=== PATIENT | male | born 1980 | race Caucasian/White ===

== ENCOUNTER 2016-03-27 10:49 | Inpatient (IN) | payer MEDICAID, OTHER ==
--- NOTE | 2016-03-27 12:58 | ED ---
General Adult HPI - General Chief complaint: Psychiatric Symptoms Stated complaint: mental health Time Seen by Provider: 03/27/16 11:10 Source: patient, RN notes reviewed Mode of arrival: ambulatory Limitations: no limitations - History of Present Illness Initial comments: Patient is a 35-year-old male who presents emergency room today with a chief complaint of suicidal and homicidal ideation. Patient does admit that he does have guns in the house. States she's had thoughts of using them. Will not specifically tell us who he has thoughts of hurting. Patient does admit that the symptoms seem to be increasing. He states had thoughts in the past. He states never had any attempts of hurting himself or others. Patient does admit that there is a therapist, so that he does see. Patient denies any other complaints or symptoms. Patient denies any recent fever, chills, shortness of breath, chest pain, back pain, abdominal pain, nausea or vomiting, numbness or tingling, dysuria or hematuria, constipation or diarrhea, headaches or visual changes, or any other complaints. - Related Data Home Medications Medication Instructions Recorded Confirmed amLODIPine [Norvasc] 10 mg PO DAILY 08/25/14 03/27/16 Escitalopram [Lexapro] 10 mg PO DAILY 12/17/15 03/27/16 LORazepam [Ativan] 1 mg PO BID PRN 12/17/15 03/27/16 Testosterone Cypionate 200 mg IM Q14D 12/17/15 03/27/16 [Depo-Testosterone] cloNIDine HCL [Catapres] 0.1 mg PO BID 12/17/15 03/27/16 oxyCODONE HCL [OxyCONTIN] 20 mg PO DAILY PRN 12/17/15 03/27/16 oxyCODONE-APAP 10-325MG [Percocet 1 tab PO QID PRN 12/17/15 03/27/16 10-325 mg] Methylphenidate HCl [Ritalin] 20 mg PO BID PRN 03/27/16 03/27/16 Allergies Allergy/AdvReac Type Severity Reaction Status Date / Time buprenorphine Allergy Unknown Verified 03/27/16 11:10 codeine Allergy Itching Verified 03/27/16 11:10 ibuprofen [From Motrin] Allergy Unknown Verified 03/27/16 11:10 ketorolac tromethamine Allergy Unknown Verified 03/27/16 11:10 [From Toradol] tramadol HCl [From Ultram] Allergy Unknown Verified 03/27/16 11:10 Whkrtte-Gfa-Gno Reductase AdvReac Severe kidney Verified 03/27/16 11:10 Inhibitor failure Review of Systems ROS Statement: Those systems with pertinent positive or pertinent negative responses have been documented in the HPI. ROS Other: All systems not noted in ROS Statement are negative. Past Medical History Past Medical History: Hypertension Additional Past Medical History / Comment(s): brain mass, back pain History of Any Multi-Drug Resistant Organisms: None Reported Past Surgical History: No Surgical Hx Reported Past Psychological History: No Psychological Hx Reported, Anxiety, Depression Smoking Status: Current every day smoker Past Alcohol Use History: None Reported Past Drug Use History: Marijuana General Exam - General Exam Comments Initial Comments: General: The patient is awake and alert, in no distress, and does not appear acutely ill. Eye: Pupils are equal, round and reactive to light, extra-ocular movements are intact. No nystagmus. There is normal conjunctiva bilaterally. No signs of icterus. Ears, nose, mouth and throat: There are moist mucous membranes and no oral lesions. Neck: The neck is supple, there is no tenderness or JVD. Cardiovascular: There is a regular rate and rhythm. No murmur, rub or gallop is appreciated. Respiratory: Lungs are clear to auscultation, respirations are non-labored, breath sounds are equal. No wheezes, stridor, rales, or rhonchi. Musculoskeletal: Normal ROM, no tenderness. Strength 5/5. Sensation intact. Pulses equal bilaterally 2+. Neurological: A&O x 3. CN II-XII intact, There are no obvious motor or sensory deficits. Coordination appears grossly intact. Speech is normal. Skin: Skin is warm and dry and no rashes or lesions are noted. Psychiatric: Cooperative. Limitations: no limitations Course Vital Signs 03/27/16 10:54 Temperature 97.0 F L Pulse Rate 83 Respiratory 18 Rate Blood Pressure 124/73 O2 Sat by Pulse 99 Oximetry Medical Decision Making - Medical Decision Making Patient has been seen here in the emergency room by [facility]. They do recommend admission. - Lab Data Lab Results 03/27/16 Range/Units 11:10 Urine Opiates Screen Not Detected (NotDetected) Ur Oxycodone Screen Not Detected (NotDetected) Urine Methadone Screen Not Detected (NotDetected) Ur Propoxyphene Screen Not Detected (NotDetected) Ur Barbiturates Screen Not Detected (NotDetected) U Tricyclic Antidepress Not Detected (NotDetected) Ur Phencyclidine Scrn Not Detected (NotDetected) Ur Amphetamines Screen Not Detected (NotDetected) U Methamphetamines Scrn Not Detected (NotDetected) U Benzodiazepines Scrn Detected H (NotDetected) Urine Cocaine Screen Detected H (NotDetected) U Marijuana (THC) Screen Detected H (NotDetected) Disposition Clinical Impression: Suicidal ideation Disposition: TRANSFER TO PSYCH HOSP/UNIT Time of Disposition: 13:20
[2016-03-27 16:10] VITALS: BMI 31.2
[2016-03-27] MEDS ORDERED: ACETAMINOPHEN TAB 325 MG TAB PO PRN (16:56)
[2016-03-27] MEDS ORDERED: ZIPRASIDONE 20 MG VIAL IM PRN (16:56)
[2016-03-27] MEDS ORDERED: MAG HYDROX/AL HYDROX/SIMETH 30 ML CUP PO PRN (16:56)
[2016-03-27] MEDS ORDERED: LORazepam 2 MG/ML SYRINGE IM PRN (16:59)
[2016-03-27] MEDS ORDERED: INFLUENZA VACCINE (3YR+) 60 MCG/0.5 ML SYRINGE IM ONE (17:03)
[2016-03-27] MEDS: HYDROcodone/APAP 5-325MG 1 EACH TAB PO PRN (20:51)
[2016-03-27] MEDS: cloNIDine HCL 0.1 MG TAB PO SCH (20:51)
[2016-03-27] MEDS: LORazepam 1 MG TAB PO PRN (20:51)
[2016-03-28] MEDS: amLODIPine 10 MG TAB PO SCH (08:04)
[2016-03-28] MEDS: cloNIDine HCL 0.1 MG TAB PO SCH ×2 (08:04→20:29)
[2016-03-28] MEDS: NICOTINE 21MG/24HR PATCH TRANSDERM SCH (08:04)
[2016-03-28] MEDS: HYDROcodone/APAP 5-325MG 1 EACH TAB PO PRN ×2 (08:05→16:23)
[2016-03-28] MEDS: LORazepam 1 MG TAB PO PRN (08:05)
[2016-03-28] MEDS ORDERED: NICOTINE 14MG/24HR PATCH TRANSDERM SCH (09:00)
[2016-03-28] MEDS ORDERED: VENLAFAXINE HCL ER 75 MG CAP PO STA (09:45)
[2016-03-28 09:48] LABS: Basophils % (A) 0 %; CH 31.3; CHCM 33.2; Eosinophils # (A) 0.3 k/uL (0-0.7); Eosinophils % (A) 3 %; HCT 53.1 % (39.0-53.0); HDW 2.24; HGB 17.6 gm/dL (13.0-17.5); Luc # (Auto) 0.12; Luc % (Auto) 1; Lymphocytes # (A) 2.1 k/uL (1.0-4.8); Lymphocytes % (A) 24 %; MCH 31.4 pg (25.0-35.0); MCHC 33.2 g/dL (31.0-37.0); MCV 94.6 fL (80.0-100.0); Mean Platelet Volume 6.8; Monocytes # (A) 0.5 k/uL (0-1.0); Monocytes % (A) 6 %; Neutrophils # (A) 5.7 k/uL (1.3-7.7); Neutrophils % (A) 65 %; RBC 5.61 m/uL (4.30-5.90); RDW 12.9 % (11.5-15.5); WBC 8.8 k/uL (3.8-10.6); WBC (Perox) 8.17
[2016-03-28 10:10] LABS: ALT 72 U/L (21-72); AST 35 U/L (17-59); Alkaline Phosphatase 57 U/L (38-126); Anion Gap 12 mmol/L; Blood Urea Nitrogen 13 mg/dL (9-20); Calcium 9.5 mg/dL (8.4-10.2); Carbon Dioxide 24 mmol/L (22-30); Chloride 106 mmol/L (98-107); Glucose 91 mg/dL (74-99); Non-African American GFR(MDRD) >60 (>60 ml/min/1.73 sqM); Potassium 4.8 mmol/L (3.5-5.1); Sodium 142 mmol/L (137-145); Total Bilirubin 0.8 mg/dL (0.2-1.3); Total Protein 6.9 g/dL (6.3-8.2)
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
[2016-03-28] MEDS: ALPRAZolam 0.5 MG TAB PO PRN ×2 (12:03→18:18)
[2016-03-28] MEDS: traZODone HCL 50 MG TAB PO SCH (20:29)
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
[2016-03-29] MEDS: HYDROcodone/APAP 5-325MG 1 EACH TAB PO PRN ×2 (08:18→15:49)
[2016-03-29] MEDS: ALPRAZolam 0.5 MG TAB PO PRN (08:19)
[2016-03-29] MEDS: VENLAFAXINE HCL ER 75 MG CAP PO SCH (08:19)
[2016-03-29] MEDS: amLODIPine 10 MG TAB PO SCH (08:19)
[2016-03-29] MEDS: cloNIDine HCL 0.1 MG TAB PO SCH ×2 (08:19→21:08)
[2016-03-29] MEDS: NICOTINE 21MG/24HR PATCH TRANSDERM SCH (08:19)
--- NOTE | 2016-03-29 14:53 | P.PN ---
Subjective Psychiatric progress notes. Patient indicates that he was able to sleep quite well and has been participating in treatment activities. In addition he was journaling regarding his thoughts and plans. Patient did not experience any adverse effects to his current medication though he was somewhat apprehensive based on his past experience. However indicates that he is having significant anxiety which is not responding to the current dose of Xanax and requesting increased dosage. As noted before patient plans to go to a three-quarter house once he leaves here and return to work as soon as possible. Not having any hostile attitude towards his ex-girlfriend at present. Patient is anxious to be on a mood stabilizer but not Depakote. Mental status. Well-built gentleman dressed in his own clothes coming readily for the evaluation and without any psychomotor disturbance. Attention and concentration aroused and sustained. Speech and thought process did not reveal any abnormal traits. Patient denied any significant depression or wishes at present though acknowledged having increasing anxiety. Appropriate affect. Euthymic mood except to the feelings of anxiousness. Slept well. Seemed to have adequate degree of insight and judgment. To continue current treatment plans and the changes are DC Xanax and change to 1 mg twice a day. Also started on Trileptal 300 mg twice a day as a mood stabilizer. Objective - Vital Signs Vital signs: Vital Signs Temp 97.5 F L 03/29/16 06:53 Pulse 83 03/29/16 06:53 Resp 16 03/29/16 06:53 BP 170/93 03/29/16 06:53 Pulse Ox 96 03/27/16 16:15 - Labs CBC & Chem 7: 03/28/16 08:39 03/28/16 08:39
[2016-03-29] MEDS: traZODone HCL 50 MG TAB PO SCH (21:08)
[2016-03-29] MEDS: ALPRAZolam 0.5 MG TAB PO SCH (21:08)
[2016-03-29] MEDS: OXcarbazepine 300 MG TAB PO SCH (21:08)
[2016-03-30] MEDS: amLODIPine 10 MG TAB PO SCH (08:45)
[2016-03-30] MEDS: ALPRAZolam 0.5 MG TAB PO SCH ×2 (08:48→20:47)
[2016-03-30] MEDS: NICOTINE 21MG/24HR PATCH TRANSDERM SCH (08:48)
[2016-03-30] MEDS: cloNIDine HCL 0.1 MG TAB PO SCH ×2 (08:48→20:47)
[2016-03-30] MEDS: HYDROcodone/APAP 5-325MG 1 EACH TAB PO PRN ×2 (08:49→15:59)
[2016-03-30] MEDS: VENLAFAXINE HCL ER 75 MG CAP PO SCH (08:49)
[2016-03-30] MEDS: OXcarbazepine 300 MG TAB PO SCH ×2 (08:49→20:47)
--- NOTE | 2016-03-30 15:22 | P.PN ---
Subjective Psychiatric progress notes. Patient was admitted the other day with history of significant depression and substance abuse reports feeling better and responding to the medication without any adverse effects. On the other hand he indicates that as an outpatient basis he was also on Ritalin and requesting of the" prescribed this. Patient is scheduled to have family session with his mother tomorrow and is anticipating discharge so that he can return to work on Thursday. Patient is also planning to be staying at a three-quarter house starting on the fifth of this month and denies having any thoughts of harm to self or others. Patient indicates that he has overcome the thoughts he had at the time of admission. Mental status. Well-built gentleman dressed in his own clothes and without any psychomotor disturbance. Attention and concentration aroused and sustained. Patient speaks spontaneously and his speech and thought processes are without any abnormal traits. Patient is euthymic with appropriate affect. Denies any depressive or anxiety feelings and has been sleeping well. No evidence of any delusions or hallucinations and patient has appropriate insight and judgment at this time. Continue current treatment plans. Objective - Vital Signs Vital signs: Vital Signs Temp 97.6 F 03/30/16 06:48 Pulse 82 03/30/16 08:45 Resp 20 03/30/16 08:45 BP 121/60 03/30/16 06:48 Pulse Ox 97 03/30/16 08:45 Intake & Output 03/29/16 03/30/16 03/30/16 18:59 06:59 18:59 Weight 112.7 kg - Labs CBC & Chem 7: 03/28/16 08:39 03/28/16 08:39
[2016-03-30] MEDS: traZODone HCL 50 MG TAB PO SCH (20:48)
[2016-03-31 07:14] VITALS: BP 135/77; PULSE 70; RESP 16; TEMP 97.8
[2016-03-31] MEDS: OXcarbazepine 300 MG TAB PO SCH (08:16)
[2016-03-31] MEDS: amLODIPine 10 MG TAB PO SCH (08:16)
[2016-03-31] MEDS: cloNIDine HCL 0.1 MG TAB PO SCH (08:16)
[2016-03-31] MEDS: ALPRAZolam 0.5 MG TAB PO SCH (08:16)
[2016-03-31] MEDS: VENLAFAXINE HCL ER 75 MG CAP PO SCH (08:16)
[2016-03-31] MEDS: HYDROcodone/APAP 5-325MG 1 EACH TAB PO PRN (08:18)
[2016-03-31] MEDS ORDERED: TESTOSTERONE CYPIONATE 200 MG/ML 1ML VIAL IM SCH (09:00)
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
== END 2016-03-31 09:05 | disposition home or self-care (01) | DRG 885 ==
LOC: EC 10:49 → 3MHU 15:42
PROVIDERS: ADMIT Psychiatry & Neurology Psychiatry; ATTEND Psychiatry & Neurology Psychiatry
DX: F31.81 Bipolar II disorder (principal); R45.851 Suicidal ideations; R45.850 Homicidal ideations; I10 Essential (primary) hypertension; F11.10 Opioid abuse, uncomplicated; E29.1 Testicular hypofunction; F12.10 Cannabis abuse, uncomplicated; F14.10 Cocaine abuse, uncomplicated; F17.200 Nicotine dependence, unspecified, uncomplicated; F41.9 Anxiety disorder, unspecified; B19.20 Unspecified viral hepatitis C without hepatic coma; G89.29 Other chronic pain; F51.5 Nightmare disorder; G47.9 Sleep disorder, unspecified; F10.10 Alcohol abuse, uncomplicated; Z79.899 Other long term (current) drug therapy; Z88.5 Allergy status to narcotic agent; Z88.8 Allergy status to other drugs, medicaments and biological substances
CPT/HCPCS: 80053; 80300; 82075; 84443; 85025; 93005; 99285

== ENCOUNTER 2016-04-13 | Emergency (ER) | payer OTHER ==
--- NOTE | 2016-04-13 16:13 | ED ---
General Adult HPI - General Chief complaint: Recheck/Abnormal Lab/Rx Stated complaint: Rx refill Time Seen by Provider: 04/13/16 16:11 Source: patient, RN notes reviewed, old records reviewed Mode of arrival: ambulatory Limitations: no limitations - History of Present Illness Initial comments: This is a 36-year-old male here for evaluation of medication refill. Patient has no acute complaints, history of psychiatric disease. Sensation states is coming in for an Adderall prescription, - Related Data Home Medications Medication Instructions Recorded Confirmed oxyCODONE-APAP 10-325MG [Percocet 1 tab PO QID PRN 12/17/15 04/13/16 10-325 mg] Methylphenidate HCl [Ritalin] 20 mg PO BID PRN 03/27/16 04/13/16 ALPRAZolam [Xanax] 1 mg PO BID 04/13/16 04/13/16 QUEtiapine XR [SEROquel XR] 50 mg PO HS 04/13/16 04/13/16 oxyCODONE ER [OxyCONTIN 20MG E.R] 20 mg PO DAILY 04/13/16 04/13/16 Previous Rx's Medication Instructions Recorded Nicotine 21Mg/24Hr Patch [Habitrol] 1 patch TRANSDERM DAILY #30 patch 03/31/16 OXcarbazepine [Trileptal] 300 mg PO BID #60 tab 03/31/16 Testosterone Cypionate 200 mg IM Q14D vial 03/31/16 [Depo-Testosterone] Venlafaxine HCl ER [Effexor XR] 75 mg PO DAILY #30 cap.er.24h 03/31/16 amLODIPine [Norvasc] 10 mg PO DAILY #30 tab 03/31/16 cloNIDine HCL [Catapres] 0.1 mg PO BID #60 tab 03/31/16 traZODone HCL [Desyrel] 50 mg PO HS #30 tab 03/31/16 Allergies Allergy/AdvReac Type Severity Reaction Status Date / Time buprenorphine Allergy Unknown Verified 04/13/16 15:41 codeine Allergy Itching Verified 04/13/16 15:41 ibuprofen [From Motrin] Allergy Unknown Verified 04/13/16 15:41 ketorolac tromethamine Allergy Unknown Verified 04/13/16 15:41 [From Toradol] tramadol HCl [From Ultram] Allergy Unknown Verified 04/13/16 15:41 Dartyil-Qwd-Ucc Reductase AdvReac Severe kidney Verified 04/13/16 15:41 Inhibitor failure Review of Systems ROS Statement: Those systems with pertinent positive or pertinent negative responses have been documented in the HPI. ROS Other: All systems not noted in ROS Statement are negative. Past Medical History Past Medical History: Hypertension Additional Past Medical History / Comment(s): brain mass, back pain History of Any Multi-Drug Resistant Organisms: None Reported Past Surgical History: No Surgical Hx Reported Past Psychological History: No Psychological Hx Reported, Anxiety, Depression Smoking Status: Current some day smoker Past Alcohol Use History: None Reported Past Drug Use History: Cocaine, Heroin, Marijuana, Prescription Drug Abuse Additional Drug Use History / Comment(s): stopped using herion September 2015 - Past Family History Father Family Medical History: Diabetes Mellitus Mother Family Medical History: Osteoarthritis (OA) (fms) General Exam Limitations: no limitations General appearance: alert, in no apparent distress Head exam: Present: atraumatic, normocephalic, normal inspection Eye exam: Present: normal appearance, PERRL, EOMI. Absent: scleral icterus, conjunctival injection, periorbital swelling ENT exam: Present: normal exam, mucous membranes moist Neck exam: Present: normal inspection. Absent: tenderness, meningismus, lymphadenopathy Respiratory exam: Present: normal lung sounds bilaterally. Absent: respiratory distress, wheezes, rales, rhonchi, stridor Cardiovascular Exam: Present: regular rate, normal rhythm, normal heart sounds. Absent: systolic murmur, diastolic murmur, rubs, gallop, clicks GI/Abdominal exam: Present: soft, normal bowel sounds. Absent: distended, tenderness, guarding, rebound, rigid Extremities exam: Present: normal inspection, full ROM, normal capillary refill. Absent: tenderness, pedal edema, joint swelling, calf tenderness Back exam: Present: normal inspection Neurological exam: Present: alert, oriented X3, CN II-XII intact Psychiatric exam: Present: normal affect, normal mood Skin exam: Present: warm, dry, intact, normal color. Absent: rash Course Vital Signs 04/13/16 15:35 Temperature 98.6 F Pulse Rate 96 Respiratory 18 Rate Blood Pressure 160/88 O2 Sat by Pulse 96 Oximetry - Reevaluation(s) Reevaluation #1: 04/13/16 16:13 Patient's medical records reviewed, will be unable to prescribe medicine at this time Medical Decision Making - Medical Decision Making 36 male to ED co needing medication refill, unable to refill patient medication at this time and is ok for discharge Disposition Clinical Impression: Medication refill Disposition: HOME SELF-CARE Condition: Good Instructions: Medicine Refill (ED) Referrals: None,Stated [Primary Care Provider] - 1-2 days
== END 2016-04-13 16:19 | disposition home or self-care (01) ==
CPT/HCPCS: 99281

== ENCOUNTER → 2017-04-24 | Outpatient (CLI) | payer BC ==
--- NOTE | 2017-04-26 00:16 | MR ---
EXAMINATION TYPE: MR cspine/lspine wo con DATE OF EXAM: 04/24/2017 COMPARISON: MRI cervical and lumbar spine July 18, 2015 HISTORY: Cervicalgia and low back pain per order. Headache with neck pain for 8 years causing pain or weakness in both arms and fingers per patient. Low back pain for 10 years causing pain into both leg s per patient. TECHNIQUE: Multiplanar, multisequence imaging of the cervical and lumbar spine are performed without IV contrast. FINDINGS: C-SPINE: FINDINGS: Sagittal images of the cervical spine show the craniocervical junction to remain within nor mal limits. The cervical and upper thoracic spinal cord remains normal in course, caliber, and signa l. Vertebral alignment is anatomic. The vertebral body and intravertebral disk heights are normal. No suspicious posterior disc herniations are seen on sagittal images. The bone marrow signal intensi ty is within normal limits. No significant spurring is noted. Axial images show the C2-C3 level to remain within normal limits. Axial images at C3-C4 level show right greater than left uncovertebral facet degenerative changes cau sing moderate right and mild left-sided neural foraminal narrowing, no significant change from prior. Axial images C4-C5 level show uncovertebral facet degenerative changes causing mild to moderate left and mild right-sided neural foraminal narrowing, no significant change from prior. Axial images at C5-C6, C6-C7, and C7-T1 levels are felt to remain within normal limits. IMPRESSION: Uncovertebral facet degenerative changes C3-C4 and C4-C5 level contributing to bilateral neural foraminal narrowing redemonstrated. No significant change from prior study. L-SPINE: Sagittal images of the lumbar spine show vertebral body heights to remain satisfactory. Alignment is stable and straightened. There is redemonstration disc desiccation with mild disc space narrowing L3- L4 and L4-L5 levels. Small posterior disc herniations are redemonstrated these levels on sagittal kirsten ges. The conus medullaris remains normal in position and signal ending at mid L1 level. The bone mar row signal intensity is within normal limits. No significant spurring is seen. Axial images at T12-L1 and L1-L2 levels are felt to remain within normal limits. Axial images at L2-L3 level redemonstrated mild broad disc bulge with spinal canal is preserved and t he bilateral neural foramina are patent. Axial images at L3-L4 level show more moderate broad disc bulge mildly effaces the anterior thecal sa c and causing asymmetric moderate right and mild left-sided neural foraminal narrowing not significan tly changed from prior. Axial images at L4-L5 level show broad-based posterior disc protrusion effaces the anterior thecal sa c with mild to moderate facet degenerative changes bilaterally. There is mild to moderate right and m ild left-sided neural foraminal narrowing at this level redemonstrated. No significant change from pr ior study is seen. Axial images at L5-S1 level redemonstrated mild to moderate facet degenerative changes bilaterally bu t spinal canal is preserved in bilateral neural foramina are patent. No significant change from prior study is seen. IMPRESSION: Straightening of lumbar spine with multilevel degenerative changes most prominent L3-L4 a nd L4-L5 level as detailed above. No significant progression from prior MRI.
== END | disposition home or self-care (01) ==
LOC: RADMRIMAIN 17:40
PROVIDERS: ATTEND Psychiatry & Neurology Neurology
DX: M99.71 Connective tissue and disc stenosis of intervertebral foramina of cervical region (principal); M47.812 Spondylosis without myelopathy or radiculopathy, cervical region; M47.817 Spondylosis without myelopathy or radiculopathy, lumbosacral region; Z88.6 Allergy status to analgesic agent; Z88.8 Allergy status to other drugs, medicaments and biological substances
CPT/HCPCS: 72141; 72148

== ENCOUNTER → 2017-04-27 | Outpatient (CLI) | payer BC ==
[2017-04-27 08:53] LABS: Basophils # (A) 0.1 k/uL (0-0.2); Basophils % (A) 1 %; Eosinophils # (A) 0.4 k/uL (0-0.7); Eosinophils % (A) 4 %; HGB 16.1 gm/dL (13.0-17.5); Lymphocytes # (A) 2.3 k/uL (1.0-4.8); Lymphocytes % (A) 23 %; MCH 29.9 pg (25.0-35.0); MCHC 31.5 g/dL (31.0-37.0); MCV 94.9 fL (80.0-100.0); Mean Platelet Volume 7.5; Monocytes # (A) 0.6 k/uL (0-1.0); Monocytes % (A) 6 %; Neutrophils # (A) 6.6 k/uL (1.3-7.7); Neutrophils % (A) 65 %; Platelet Count 227 k/uL (150-450); RBC 5.38 m/uL (4.30-5.90); RDW 14.2 % (11.5-15.5); WBC 10.1 k/uL (3.8-10.6)
[2017-04-27 09:14] LABS: ALT 140 U/L (21-72); AST 65 U/L (17-59); Albumin 4.3 g/dL (3.5-5.0); Alkaline Phosphatase 84 U/L (38-126); Anion Gap 9 mmol/L; Blood Urea Nitrogen 11 mg/dL (9-20); Calcium 9.8 mg/dL (8.4-10.2); Carbon Dioxide 24 mmol/L (22-30); Chloride 108 mmol/L (98-107); Cholesterol 148 mg/dL (<200); Glucose 113 mg/dL (74-99); HDL Cholesterol 57 mg/dL (40-60); LDL Cholesterol,Calculated 78 mg/dL (0-99); Potassium 4.5 mmol/L (3.5-5.1); Sodium 141 mmol/L (137-145); Total Bilirubin 0.3 mg/dL (0.2-1.3); Total Protein 7.1 g/dL (6.3-8.2); Triglycerides 66 mg/dL (<150)
== END | disposition home or self-care (01) ==
LOC: LABWHC1 08:16
PROVIDERS: ATTEND Internal Medicine
DX: F90.9 Attention-deficit hyperactivity disorder, unspecified type (principal); F41.9 Anxiety disorder, unspecified
CPT/HCPCS: 36415; 80053; 80061; 84443; 85025

== ENCOUNTER → 2017-07-16 | Outpatient (CLI) | payer BC ==
[2017-07-16 20:33] LABS: Calcium 9.7 mg/dL (8.4-10.2); Magnesium 1.7 mg/dL (1.6-2.3); Phosphorus 3.7 mg/dL (2.5-4.5); Potassium 4.1 mmol/L (3.5-5.1)
== END ==
LOC: MMGSC 09:54
PROVIDERS: ATTEND Psychiatry & Neurology Neurology
DX: M62.838 Other muscle spasm (principal)
CPT/HCPCS: 36415; 82310; 83735; 84100; 84132

== ENCOUNTER → 2017-07-16 | Outpatient (CLI) | payer BC ==
[2017-07-16 21:58] LABS: Basophils # (A) 0.1 k/uL (0-0.2); Basophils % (A) 1 %; Eosinophils # (A) 0.4 k/uL (0-0.7); Eosinophils % (A) 4 %; HGB 15.4 gm/dL (13.0-17.5); Lymphocytes # (A) 3.5 k/uL (1.0-4.8); Lymphocytes % (A) 31 %; MCH 31.1 pg (25.0-35.0); MCHC 34.2 g/dL (31.0-37.0); MCV 90.9 fL (80.0-100.0); Mean Platelet Volume 7.7; Monocytes # (A) 0.7 k/uL (0-1.0); Monocytes % (A) 6 %; Neutrophils # (A) 6.4 k/uL (1.3-7.7); Neutrophils % (A) 57 %; Platelet Count 223 k/uL (150-450); RBC 4.95 m/uL (4.30-5.90); RDW 13.1 % (11.5-15.5); WBC 11.3 k/uL (3.8-10.6)
[2017-07-17 01:32] LABS: Hemoglobin A1C 4.9 % (4.0-6.0)
== END | disposition home or self-care (01) ==
LOC: MMGSC 09:22
PROVIDERS: ATTEND Family Medicine
DX: I10 Essential (primary) hypertension (principal); R73.02 Impaired glucose tolerance (oral)
CPT/HCPCS: 36415; 83036; 84443; 85025

== ENCOUNTER 2019-06-29 18:13 | Emergency (ER) | payer BC, OTHER ==
[2019-06-29 18:21] VITALS: BP 114/87; PULSE 107; RESP 16; TEMP 97.7
--- NOTE | 2019-06-29 18:39 | ED ---
General Adult HPI - General Chief complaint: Overdose Stated complaint: OVERDOSE Time Seen by Provider: 06/29/19 18:21 Source: patient, EMS, RN notes reviewed Mode of arrival: EMS Limitations: no limitations - History of Present Illness Initial comments: Patient is a pleasant 39-year-old male presenting to the emergency department by EMS following eating found unresponsive. Reported bystander CPR was done. EMS provided 4 mg of Narcan with resolution of patient's symptoms. They did find a needle in the patient's back pocket. Patient admits to feeling drowsy at this time however has no other complaints. Patient admits to regular using heroin, injecting it as well as other drugs. - Related Data Home Medications Medication Instructions Recorded Confirmed oxyCODONE-APAP 10-325MG [Percocet 1 tab PO QID PRN 12/17/15 04/13/16 10-325 mg] Methylphenidate HCl [Ritalin] 20 mg PO BID PRN 03/27/16 04/13/16 ALPRAZolam [Xanax] 1 mg PO BID 04/13/16 04/13/16 QUEtiapine XR [SEROquel XR] 50 mg PO HS 04/13/16 04/13/16 oxyCODONE ER [OxyCONTIN 20MG E.R] 20 mg PO DAILY 04/13/16 04/13/16 Previous Rx's Medication Instructions Recorded Nicotine 21Mg/24Hr Patch [Habitrol] 1 patch TRANSDERM DAILY #30 patch 03/31/16 OXcarbazepine [Trileptal] 300 mg PO BID #60 tab 03/31/16 Testosterone Cypionate 200 mg IM Q14D vial 03/31/16 [Depo-Testosterone] Venlafaxine HCl ER [Effexor XR] 75 mg PO DAILY #30 cap.er.24h 03/31/16 amLODIPine [Norvasc] 10 mg PO DAILY #30 tab 03/31/16 cloNIDine HCL [Catapres] 0.1 mg PO BID #60 tab 03/31/16 traZODone HCL [Desyrel] 50 mg PO HS #30 tab 03/31/16 Allergies Allergy/AdvReac Type Severity Reaction Status Date / Time buprenorphine Allergy Unknown Verified 04/13/16 15:41 codeine Allergy Itching Verified 04/13/16 15:41 ibuprofen [From Motrin] Allergy Unknown Verified 04/13/16 15:41 ketorolac tromethamine Allergy Unknown Verified 04/13/16 15:41 [From Toradol] tramadol HCl [From Ultram] Allergy Unknown Verified 04/13/16 15:41 Mlptfqu-Woc-Plc Reductase AdvReac Severe kidney Verified 04/13/16 15:41 Inhibitor failure Review of Systems ROS Statement: Those systems with pertinent positive or pertinent negative responses have been documented in the HPI. ROS Other: All systems not noted in ROS Statement are negative. Constitutional: Denies: fever Eyes: Denies: eye pain ENT: Denies: ear pain Respiratory: Denies: cough, dyspnea Cardiovascular: Denies: palpitations Endocrine: Denies: fatigue Gastrointestinal: Denies: abdominal pain Genitourinary: Denies: dysuria Musculoskeletal: Denies: back pain Skin: Denies: rash Neurological: Denies: weakness Past Medical History Past Medical History: Hypertension Additional Past Medical History / Comment(s): brain mass, back pain History of Any Multi-Drug Resistant Organisms: None Reported Past Surgical History: No Surgical Hx Reported Past Psychological History: No Psychological Hx Reported, Anxiety, Depression Smoking Status: Current some day smoker Past Alcohol Use History: None Reported Past Drug Use History: Cocaine, Heroin, Marijuana, Prescription Drug Abuse - Past Family History Father Family Medical History: Diabetes Mellitus Mother Family Medical History: Osteoarthritis (OA) (fms) General Exam Limitations: altered mental status General appearance: alert, in no apparent distress Head exam: Present: normocephalic Eye exam: Present: normal appearance, PERRL, EOMI ENT exam: Present: normal oropharynx Neck exam: Present: normal inspection Respiratory exam: Present: normal lung sounds bilaterally Cardiovascular Exam: Present: regular rate, normal rhythm Expanded Peripheral pulses: 2+: Radial (R), Radial (L), Dorsalis Pedis (R), Dorsalis Pedis (L) GI/Abdominal exam: Present: soft. Absent: tenderness Extremities exam: Present: normal inspection Neurological exam: Present: alert Psychiatric exam: Present: flat affect Skin exam: Present: other (Bilateral forearm and antecubital track corral) Course Vital Signs 06/29/19 18:17 Temperature 97.7 F Pulse Rate 107 H Respiratory 16 Rate Blood Pressure 114/87 O2 Sat by Pulse 96 Oximetry EKG Findings - EKG Comments: EKG Findings:: Sinus tachycardia 104. CO 140. QRS 98. QT 350. QTC 460. Normal axis. Normal QRS. No acute ST change. Medical Decision Making - Medical Decision Making Patient reevaluated and improved. Patient is alert and oriented. Patient is able to ambulate without difficulty. Patient states he usually injects cocaine more than heroin. Patient is offered further testing however refuses and requests discharge home. Patient does demonstrate medical decision making Disposition Clinical Impression: Drug overdose Disposition: HOME SELF-CARE Condition: Stable Instructions (If sedation given, give patient instructions): Adult Overdose (ED), Polysubstance Abuse (ED) Additional Instructions: Discontinue all drug use. Please follow-up with primary care physician in the next couple of days for recheck. Return for weakness, passing out, worsening symptoms or other concerns. Is patient prescribed a controlled substance at d/c from ED?: No Referrals: Jacek Nguyen [STAFF PHYSICIAN] - 1-2 days Time of Disposition: 19:43
[2019-06-29] MEDS ORDERED: SODIUM CHLORIDE 0.9% 1,000 ML IV STA (19:23)
== END 2019-06-29 20:04 | disposition home or self-care (01) ==
LOC: EC 18:13
DX: T50.901A Poisoning by unspecified drugs, medicaments and biological substances, accidental (unintentional), initial encounter (principal); R41.82 Altered mental status, unspecified; R23.8 Other skin changes; F14.90 Cocaine use, unspecified, uncomplicated; F11.90 Opioid use, unspecified, uncomplicated; F32.9 Major depressive disorder, single episode, unspecified; F41.9 Anxiety disorder, unspecified; F17.200 Nicotine dependence, unspecified, uncomplicated; Z88.5 Allergy status to narcotic agent; Z88.6 Allergy status to analgesic agent; Z88.8 Allergy status to other drugs, medicaments and biological substances; Z79.891 Long term (current) use of opiate analgesic; Z79.899 Other long term (current) drug therapy; Z87.39 Personal history of other diseases of the musculoskeletal system and connective tissue; Z53.20 Procedure and treatment not carried out because of patient's decision for unspecified reasons
CPT/HCPCS: 93005; 96360; 99284

== ENCOUNTER 2019-07-22 19:29 | Emergency (ER) | payer BC, OTHER ==
[2019-07-22 19:34] VITALS: BP 146/82; PULSE 85; RESP 18; TEMP 98.2
== END 2019-07-22 20:37 | disposition left against medical advice (07) ==
LOC: EC 19:29
DX: Z53.21 Procedure and treatment not carried out due to patient leaving prior to being seen by health care provider (principal)
CPT/HCPCS: 99499

== ENCOUNTER → 2020-07-18 | Outpatient (CLI) | payer BC ==
--- NOTE | 2020-07-18 07:55 | US ---
EXAMINATION TYPE: US liver DATE OF EXAM: 07/18/2020 COMPARISON: NONE CLINICAL HISTORY: R74.8 Elevated liver enzymes. Elevated liver enzymes EXAM MEASUREMENTS: Liver Length: 15.8 cm Gallbladder Wall: .3 cm CBD: .6 cm Right Kidney: 13.1 x 4.8 x 5.4 cm Pancreas: Tail obscured by overlying bowel gas Liver: wnl Gallbladder: No stones seen Evidence for sonographic Mobley's sign: No CBD: wnl Right Kidney: wnl IMPRESSION: Negative
== END | disposition home or self-care (01) ==
LOC: RADUSWWP 07:07
PROVIDERS: ATTEND Internal Medicine
DX: R74.8 Abnormal levels of other serum enzymes (principal)
CPT/HCPCS: 76705

== ENCOUNTER 2021-03-19 08:19 | Emergency (ER) | payer BC ==
[2021-03-19 08:35] VITALS: RESP 19; TEMP 98.3
[2021-03-19 10:12] LABS: Basophils # (A) 0.1 k/uL (0-0.2); Basophils % (A) 1 %; Eosinophils # (A) 0.1 k/uL (0-0.7); Eosinophils % (A) 1 %; HCT 44.6 % (39.0-53.0); HGB 15.4 gm/dL (13.0-17.5); Lymphocytes # (A) 1.6 k/uL (1.0-4.8); Lymphocytes % (A) 17 %; MCH 31.9 pg (25.0-35.0); MCHC 34.5 g/dL (31.0-37.0); MCV 92.4 fL (80.0-100.0); Mean Platelet Volume 7.3; Monocytes # (A) 0.3 k/uL (0-1.0); Monocytes % (A) 3 %; Neutrophils # (A) 7.6 k/uL (1.3-7.7); Neutrophils % (A) 78 %; Platelet Count 209 k/uL (150-450); RBC 4.82 m/uL (4.30-5.90); RDW 12.7 % (11.5-15.5); WBC 9.7 k/uL (3.8-10.6)
[2021-03-19 10:28] LABS: African American GFR (CKD) >90 (>60 ml/min/1.73 sqM); Anion Gap 7 mmol/L; Blood Urea Nitrogen 13 mg/dL (9-20); Calcium 9.9 mg/dL (8.4-10.2); Carbon Dioxide 22 mmol/L (22-30); Chloride 109 mmol/L (98-107); Glucose 98 mg/dL (74-99); Non-African American GFR(CKD) >90 (>60 ml/min/1.73 sqM); Potassium 4.6 mmol/L (3.5-5.1); Sodium 138 mmol/L (137-145)
--- NOTE | 2021-03-19 10:28 | CT ---
EXAMINATION TYPE: CT soft tissue neck w con DATE OF EXAM: 03/19/2021 HISTORY: Swelling to neck bilaterally. COMPARISON: NONE CT DLP: 573.2 mGycm. Automated Exposure Control for Dose Reduction was Utilized. TECHNIQUE: CT scan of the neck is performed with IV Contrast, patient injected with 100 mL of Isovue 300, axial images are obtained, coronal and sagittal reformatted images are reviewed. FINDINGS: Airway: Mild emphysematous change and visualized upper lungs. Prominence of the adenoid tonsils and t he posterior nasopharynx. Prominence of the heart palate could reflect palatine tonsillar enlargement , correlate clinically. There is significant narrowing of the nasopharyngeal airway sagittal image 42 . Patent oral pharyngeal airway. Region of the epiglottis and vallecula appears within normal limits. Hypopharyngeal airway is patent. Thyroid gland appears within normal limits. No suspicious retrophar yngeal fluid collection or abscess. Parotid/submandibular glands: No gross abnormality seen. Carotid/Vascular Structures: Bovine type aortic arch which is normal variant. Osseous Structures: No significant abnormality. Other: There is 2.3 cm mucous retention cyst or polyp in the inferior right maxillary sinus. Needs. S ome slightly deviated to right of midline. Parapharyngeal fat spaces are maintained bilaterally. IMPRESSION: Prominence of the adenoid tonsils posterior nasal pharynx consistent with tonsillitis. Pr ominence of the palate causing significant nasopharyngeal airway narrowing, correlate for palatine to nsillitis. No well-formed fluid collection or drainable abscess. Patent oropharyngeal airway noted.
[2021-03-19] MEDS ORDERED: DEXAMETHASONE SOD PHOSPHATE 10 MG/ML 1 ML VIAL IVP STA (10:41)
[2021-03-19] MEDS ORDERED: AMOXIC-POT CLAV 875-125MG 1 EACH TAB PO STA (10:41)
--- NOTE | 2021-03-19 10:44 | ED ---
General Adult HPI - General Chief complaint: Skin/Abscess/Foreign Body Stated complaint: Facial swelling Time Seen by Provider: 03/19/21 08:49 Source: patient, RN notes reviewed, old records reviewed Mode of arrival: ambulatory Limitations: no limitations - History of Present Illness Initial comments: Patient is a 40-year-old male with past medical history remarkable for polysubstance abuse who presents here to Department complaining of a one week history of worsening neck swelling. Denies any difficulty swallowing, eating, breathing. Denies any fevers, chills, sick contacts. Denies any cough, nausea, vomiting. He has no other acute complaints at this time. He is concerned it may be infectious in nature and wanted to be evaluated. States he has not had this occurred before. Denies any recent IV drug use, and states he has been sober for over a year. Does endorse occasionally smoking marijuana. Denies any throat pain, mild swelling. States his voice is no change. - Related Data Home Medications Medication Instructions Recorded Confirmed Aspirin [Aspirin EC] 500 mg PO DAILY 03/19/21 03/19/21 Atorvastatin [Lipitor] 40 mg PO HS 03/19/21 03/19/21 Dextroamphetamine/Amphetamine 20 mg PO BID@0500,1200 03/19/21 03/19/21 [Adderall] Ibuprofen [Motrin] 800 mg PO BID PRN 03/19/21 03/19/21 Losartan-Hctz 50-12.5 mg [Hyzaar 1 tab PO DAILY 03/19/21 03/19/21 50-12.5] cloNIDine HCL [Catapres] 0.1 mg PO HS 03/19/21 03/19/21 diphenhydrAMINE [Benadryl] 50 mg PO HS 03/19/21 03/19/21 Previous Rx's Medication Instructions Recorded amLODIPine [Norvasc] 10 mg PO DAILY #30 tab 03/31/16 Amoxicillin/Potassium Clav 1 tab PO Q12HR 5 Days #10 tab 03/19/21 [Augmentin 875-125 Tablet] Allergies Allergy/AdvReac Type Severity Reaction Status Date / Time buprenorphine Allergy Unknown Verified 03/19/21 10:27 codeine Allergy Itching Verified 03/19/21 10:27 ibuprofen [From Motrin] Allergy Unknown Verified 03/19/21 10:27 ketorolac tromethamine Allergy Unknown Verified 03/19/21 10:27 [From Toradol] tramadol HCl [From Ultram] Allergy Unknown Verified 03/19/21 10:27 Rrxkkyd-SYV-DaA Reductase AdvReac Severe kidney Verified 03/19/21 10:27 Inhibitor failure [Avgxwlg-Tjm-Nle Reductase Inhibitor] Review of Systems ROS Statement: Those systems with pertinent positive or pertinent negative responses have been documented in the HPI. Review of Systems: CONST: Denies fever EYES: Denies blurry vision ENT: Endorses neck swelling C/V: Denies Chest pain RESP: Denies shortness of breath GI: Denies abdominal pain : Denies dysuria SKIN: Denies rash. MSK: Denies joint pain. NEURO: Denies headache ROS Other: All systems not noted in ROS Statement are negative. Past Medical History Past Medical History: Hypertension Additional Past Medical History / Comment(s): brain mass, back pain History of Any Multi-Drug Resistant Organisms: None Reported Past Surgical History: No Surgical Hx Reported Past Psychological History: Anxiety, Bipolar, Depression, PTSD Smoking Status: Current every day smoker Past Alcohol Use History: Occasional Past Drug Use History: Cocaine, Heroin, Marijuana, Prescription Drug Abuse - Past Family History Father Family Medical History: Diabetes Mellitus Mother Family Medical History: Osteoarthritis (OA) (fms) General Exam - General Exam Comments Initial Comments: General: Appears in no acute distress. HEAD: Normal with no signs of head trauma. EYES: PERRLA, EOMI, conjunctiva normal, no discharge. ENT: Hearing grossly intact, normal oropharynx. Patient does have some lymphadenopathy bilaterally. Posterior oropharynx is unremarkable. No erythema or tonsillar exudates, however there is some swelling of the tonsils bilaterally. No tongue swelling. Floor of the mouth is unremarkable nasal swelling. No crepitus is palpated. No sinus tenderness to palpation. No stridor on auscultation. RESPIRATORY: Clear breath sounds bilaterally. No wheezes, rales, or rhonchi. C/V: Regular rate and rhythm. S1 and S2 auscultated, no edema, peripheral pulses 2+ and intact throughout ABD: Abd is soft, nontender, nondistended EXT: Normal range of motion, no obvious deformity SKIN: No rashes or lesions observed on exposed skin. NEURO: Alert and oriented 4. Cranial nerves II through XII are intact. Limitations: no limitations Course Vital Signs 03/19/21 03/19/21 08:30 11:06 Temperature 98.3 F Pulse Rate 103 H 65 Respiratory 19 19 Rate Blood Pressure 150/95 122/81 O2 Sat by Pulse 97 97 Oximetry Medical Decision Making - Medical Decision Making I discussed with the patient that based on his presentation and physical exam, I'm concerned for possible infection. His no obvious red flag signs at this time, however we did elect to obtain a CT soft tissue of the neck and lower face to evaluate for infection. Basic laboratory studies will also be obtained. He was in agreement this plan. To cleanse analgesia at this time. Soft tissue neck CT revealed prominence of the adenoid tonsils consistent with tonsillitis as well as prominence of the palate which is also consistent with tonsillitis. No abscess present. Laboratory studies are remarkable for no leukocytosis. Covid is negative. Remainder the labs are unremarkable. On reevaluation, I discussed the findings with the patient. I do believe it is safer and attempted to be discharged home. He will be administered Decadron prior to discharge as well as a dose of Augmentin. He will be given a prescription for Augmentin. He was in agreement this plan. I will provide the patient with a prescription for Augmentin. I instructed the patient to follow up with their PCP in the next 3 days. I explained that the patient should return to the emergency department if they experience any worsening symptoms. Strict return precautions were discussed with the patient. The patient expressed understanding of these instructions. I answered all ques tions that the patient had. The patient was discharged home in fair condition with their prescriptions and follow up information. - Lab Data Result diagrams: 03/19/21 10:04 03/19/21 10:04 Lab Results 03/19/21 03/19/21 03/19/21 Range/Units 10:04 10:04 10:04 WBC 9.7 (3.8-10.6) k/uL RBC 4.82 (4.30-5.90) m/uL Hgb 15.4 (13.0-17.5) gm/dL Hct 44.6 (39.0-53.0) % MCV 92.4 (80.0-100.0) fL MCH 31.9 (25.0-35.0) pg MCHC 34.5 (31.0-37.0) g/dL RDW 12.7 (11.5-15.5) % Plt Count 209 (150-450) k/uL MPV 7.3 Neutrophils % 78 % Lymphocytes % 17 % Monocytes % 3 % Eosinophils % 1 % Basophils % 1 % Neutrophils # 7.6 (1.3-7.7) k/uL Lymphocytes # 1.6 (1.0-4.8) k/uL Monocytes # 0.3 (0-1.0) k/uL Eosinophils # 0.1 (0-0.7) k/uL Basophils # 0.1 (0-0.2) k/uL Sodium 138 (137-145) mmol/L Potassium 4.6 (3.5-5.1) mmol/L Chloride 109 H (98-107) mmol/L Carbon Dioxide 22 (22-30) mmol/L Anion Gap 7 mmol/L BUN 13 (9-20) mg/dL Creatinine 0.80 (0.66-1.25) mg/dL Est GFR (CKD-EPI)AfAm >90 (>60 ml/min/1.73 sqM) Est GFR (CKD-EPI)NonAf >90 (>60 ml/min/1.73 sqM) Glucose 98 (74-99) mg/dL Calcium 9.9 (8.4-10.2) mg/dL Coronavirus (PCR) Not Detected (Not Detectd) Disposition Clinical Impression: Acute tonsillitis Disposition: HOME SELF-CARE Condition: Fair Instructions (If sedation given, give patient instructions): Tonsillitis (ED) Prescriptions: Amoxicillin/Potassium Clav [Augmentin 875-125 Tablet] 1 tab PO Q12HR 5 Days #10 tab Is patient prescribed a controlled substance at d/c from ED?: No Referrals: Larry Fischer MD [Primary Care Provider] - 1-2 days
[2021-03-19 11:07] VITALS: BP 122/81; PULSE 65
== END 2021-03-19 11:07 | disposition home or self-care (01) ==
LOC: EC 08:19
DX: J03.90 Acute tonsillitis, unspecified (principal); Z20.822 Contact with and (suspected) exposure to COVID-19; I10 Essential (primary) hypertension; F31.9 Bipolar disorder, unspecified; F41.9 Anxiety disorder, unspecified; F17.200 Nicotine dependence, unspecified, uncomplicated; F12.90 Cannabis use, unspecified, uncomplicated; F11.90 Opioid use, unspecified, uncomplicated; F14.90 Cocaine use, unspecified, uncomplicated; Z79.82 Long term (current) use of aspirin; Z79.1 Long term (current) use of non-steroidal anti-inflammatories (NSAID); Z79.899 Other long term (current) drug therapy
CPT/HCPCS: 36415; 80048; 85025; 87635; 70491; 99284; 96374; J1100; Q9967

== ENCOUNTER → 2021-03-25 | Outpatient (CLI) | payer BC ==
--- NOTE | 2021-03-25 14:30 | XR ---
EXAMINATION TYPE: XR lumbar spine 2 or 3V DATE OF EXAM: 03/25/2021 CLINICAL HISTORY: pain TECHNIQUE: Three views of the lumbar spine are submitted. COMPARISON: None. FINDINGS: There are 5 lumbar type vertebral bodies identified. The lumbar spine shows satisfactory alignment w ithout evidence of acute fracture or dislocation. Vertebral body heights are within normal limits. Moderate degenerative disc space narrowing noted from L3-4 through L5-S1. The overlying soft tissue appears unremarkable. IMPRESSION: No acute fracture or dislocation is seen in the lumbar spine. ICD 10 NO FRACTURE, INITIAL EVALUATION
== END | disposition home or self-care (01) ==
LOC: RADXRMAIN 14:17
PROVIDERS: ATTEND Internal Medicine
DX: M54.41 Lumbago with sciatica, right side (principal)
CPT/HCPCS: 72100

== ENCOUNTER → 2021-04-10 | Outpatient (CLI) | payer BC ==
--- NOTE | 2021-04-11 07:09 | MR ---
EXAMINATION TYPE: MR lumbar spine wo con DATE OF EXAM: 04/10/2021 COMPARISON: Lumbar spine x-ray March 25, 2021. HISTORY: Low back pain for several years with recent pain down left leg due to fall 02-16-21. Recent fall injury. TECHNIQUE: Multiplanar, multisequence imaging of the lumbar spine is performed without IV contrast. FINDINGS: Exam suboptimal as it is degraded by patient motion artifact. Sagittal images of the lumbar spine show vertebral body heights and alignment to appear stable and straightened. There is disc cely iccation L3-L4 through the L5-S1 levels. Mild disc space narrowing L3-L4 level redemonstrated. The co nus medullaris is normal in position and signal ending mid L1 level. Some heterogeneous bone uptake t o endplate change and anterior superior L4 vertebra. Axial images show T12-L1, L1-L2, and L2-L3 levels all to appear within normal limits. Axial images at L3-L4 level show moderate broad disc bulge mildly effacing the anterior thecal sac al boyd with mild/moderate facet degenerative changes bilaterally. There is mild to moderate right greate r than left bilateral inferior neural foraminal narrowing. Axial images at the L4-L5 level shows [id number] facet degenerative changes bilaterally. There is mild broad disc bulge minimally effacing the anterior thecal sac and mild bilateral inferior infer ior neural foraminal narrowing. Axial images at the L5-S1 level shows moderate facet arthropathy bilaterally. There is tiny central d isc protrusion but the spinal canal is preserved and bilateral neural foramina are patent. Paraspinal muscle bulk is maintained. IMPRESSION: Straightening of lumbar spine with multilevel degenerative changes L3-L4 through the L5-S 1 level seen as detailed above.
== END | disposition home or self-care (01) ==
LOC: RADMRIMAIN 19:25
PROVIDERS: ATTEND Internal Medicine
DX: M47.897 Other spondylosis, lumbosacral region (principal); M51.27 Other intervertebral disc displacement, lumbosacral region
CPT/HCPCS: 72148

== ENCOUNTER → 2021-05-17 | Outpatient (CLI) | payer BC ==
--- NOTE | 2021-05-18 04:15 | MR ---
EXAMINATION TYPE: MR brain and iac wo/w con DATE OF EXAM: 05/17/2021 COMPARISON: 12/28/2013 HISTORY: Follow up, abnormal prior 2014 MRI. Tinnitus, hearing loss. CONTRAST: Standard multiplanar, multisequence MRI departmental protocol images were obtained without contrast a nd with 13 mL intravenous Gadavist gadolinium contrast. Ventricles have normal size. There is no mass effect or midline shift. There is no sign of intracrani al hemorrhage. Diffusion images show no evidence of an acute infarct. The elaine and white matter structures have fairly normal signal pattern. There is no evidence of cereb ral edema. There is no evidence of posterior fossa mass. The internal auditory canals appear normal. There is no evidence of cerebellopontine angle mass. Cerebellum appears normal. The brainstem is inta ct. Corpus callosum appears normal. Sella turcica is normal. There is no evidence of orbital mass. There is some mucous retention cyst in the right maxillary sinus. There is normal signal pattern of t he mastoid sinuses. No evidence of sinusitis. There is 7 mm area of increased fluid signal at the apex of the left petrous pyramid that could relat e to some inflammatory changes in the left middle ear. The contrast images show no pathologic enhancement. There is normal enhancement of the venous sinuses . IMPRESSION: There is increased fluid signal in the left petrous bone probably in the epi tympanic recess and is a t stable appearance compared to last exam. This could relate to some chronic inflammation. No expansi le lesion. There is changing pattern of mucous retention cysts in the maxillary sinuses compared to old exam.
== END | disposition home or self-care (01) ==
LOC: RADMRIMAIN 19:22
PROVIDERS: ATTEND Otolaryngology
DX: H93.19 Tinnitus, unspecified ear (principal); H91.90 Unspecified hearing loss, unspecified ear
CPT/HCPCS: 70553